=== PATIENT | female | born 1980 | race Caucasian/White ===

== ENCOUNTER 2022-05-18 14:50 | Day surgery (SDC) | payer OTHER | END 2022-05-18 23:45 | disposition home or self-care (01) | LOC: CIR.AMB 14:50 | PROVIDERS: ATTEND Obstetrics & Gynecology | DX: N84.0 Polyp of corpus uteri (principal); Z20.822 Contact with and (suspected) exposure to COVID-19; Z86.16 Personal history of COVID-19 ==